=== PATIENT | male | born 1995 | race Hispanic/Latino ===

== ENCOUNTER 2022-11-20 09:44 | Emergency (ER) | payer OTHER ==
[~2022-11-20] VITALS: Ht 188 cm; Wt 107.0 kg
[2022-11-20] MEDS ORDERED: HIBICLENS118 ML TOP (09:57)
[2022-11-20] MEDS ORDERED: MINOCYCLINE HC100 MG PO (09:57)
[2022-11-20 10:01] VITALS: BP 112/89
== END 2022-11-20 10:01 | disposition home or self-care (01) ==
LOC: ED 09:44
DX: L70.0 Acne vulgaris (principal)
CPT/HCPCS: 99282